=== PATIENT | male | born 1995 | race Caucasian/White ===

== ENCOUNTER 2019-02-17 22:06 | Emergency (ER) | payer OTHER ==
[2019-02-17] MEDS ORDERED: SODIUM CHLORIDE 1,000 ML IV ONE ×3 (22:20→23:00)
[2019-02-17] MEDS ORDERED: ONDANSETRON 4 MG/2 ML VIAL IVPB ONE (22:20)
--- NOTE | 2019-02-17 22:25 | PDOC ---
History of Present Illness - General Chief Complaint: Nausea/Vomiting Stated Complaint: VOMITING Time Seen by Provider: 02/17/19 22:19 History Source: Patient Exam Limitations: No Limitations - History of Present Illness Initial Comments: 02/17/19 22:26 This is a 23-year-old male comes in with approximately 3 hours of nausea vomiting and some diarrhea. Patient said he vomited about 6 times in the last 4 hours. Patient otherwise is healthy and has no medical problems. Patient became concerned because after vomiting he developed some discomfort radiating up into his chest area and called his mom who is a PA who recommended he come to the ED as she is in [place] on business. Allergies: as per nursing notes Past Medical History: none Social history: Lives with family. No smoking. No alcohol. No illicit drugs. Surgical history: None General: No fevers or chills, no weakness, no weight loss HEENT: No change in vision. No sore throat,. No ear pain CardioVascular: no chest discomfort. No shortness of breath Respiratory:No cough, or wheezing. Gastrointestinal: + nausea, + vomiting, + diarrhea or constipation, No rectal bleeding Genitourinary: No dysuria, hematuria, or frequency Musculoskeletal: No joint or muscle pain or swelling Neurologic: No headache, vertigo, dizziness or loss of consciousness Psychiatric: nor depression Skin: No rashes or easy bruising Endocrine: no increased thirst or abnormal weight change Allergic: no skin or latex allergy All other systems reviewed and normal Exam: General: Well-nourished well-developed individual, no acute distress HEENT: Throat: Normal, tonsils normal, no erythema or exudate, mucus membranes are dry Neck: Supple, no meningeal signs, no lymphadenopathy Eyes::Pupils equal reactive and round, extraocular motion intact Chest: Nontender to palpation Cardiac: S1-S2 normal, regular rate and rhythm, no murmurs rubs or gallops Respiratory: Lungs clear to auscultation bilateral Abdomen: Soft, nondistended, normal bowel sounds, there is no tenderness on palpation diffusely Extremities: Warm, dry, no cyanosis, clubbing, or edema Skin: No rashes Neuro: Alert and oriented x3, CN II - XII intact, nonfocal exam with normal strength, normal sensation, normal reflexes, normal gait, Psych: Normal mood and affect 02/18/19 00:02 Reevaluation post 3 L of fluid. Patient feels much better he does does have some chest discomfort that is mild in nature. They can EKG was done which shows normal sinus rhythm rate of [address]-T wave changes normal EKG His mom was called in [place] and discussed with her the results of his workup. Prescription was sent to patient's pharmacy for Zofran Patient discharged home Past History - Past Medical History Allergies/Adverse Reactions: Allergies Allergy/AdvReac Type Severity Reaction Status Date / Time No Known Allergies Allergy Unverified 02/17/19 22:58 Home Medications: Ambulatory Orders Ondansetron [Zofran *Odt*] 4 mg SL QID PRN #12 od.tablet 02/17/19 ED Treatment Course - LABORATORY CBC & Chemistry Diagram: 02/17/19 22:29 02/17/19 22:29 *DC/Admit/Observation/Transfer Diagnosis at time of Disposition: Nausea & vomiting Qualifiers: Vomiting type: unspecified Vomiting Intractability: non-intractable Qualified Code(s): R11.2 - Nausea with vomiting, unspecified - Discharge Dispostion Disposition: HOME Condition at time of disposition: Good Decision to Admit order: No - Prescriptions Prescriptions: Ondansetron [Zofran *Odt*] 4 mg SL QID PRN #12 od.tablet PRN Reason: Nausea - Referrals - Patient Instructions Additional Instructions: If you have any further nausea or vomiting I sent a prescription to your pharmacy for Zofran get it filled and U can take Zofran 1 tablet as often as every 4 hours if needed. Let the Zofran dissolve under your tongue do not swallow it. Clear liquids only for the next 6 hours.. After that if you have had no further vomiting you may have bananas, rice, applesauce, or toast. If no further vomiting for another 8 hours you may have regular food. If you vomit again then nothing to eat or drink for 2 hours. then start back with the clear liquids. Return to the emergency department immediately with ANY new, persistent or worsening symptoms. You MUST call and follow up with your doctor tomorrow if not better. Please make sure your doctor reviews the results of your emergency evaluation. - Post Discharge Activity
[2019-02-17] MEDS ORDERED: FAMOTIDINE 20 MG/50 ML IVPB 20 MG/50 ML MG IVPB ONE ×2 (22:26→22:59)
[2019-02-17 22:32] VITALS: BP 125/77; PULSE 96; TEMP 98.6; BMI 27.3
[2019-02-17 22:58] LABS: HEMATOCRIT 46.4 % (35.4-49); HEMOGLOBIN 15.9 GM/dl (11.7-16.9); MCH 31.5 pg (25.7-33.7); MCHC 34.3 g/dl (32.0-35.9); MEAN CELL VOLUME 91.8 fl (80-96); MEAN PLT VOLUME 9.3 fl (7.5-11.1); PLATELET COUNT 229 K/MM3 (134-434); RBC 5.05 M/mm3 (4.00-5.60); RDW 12.2 % (11.9-15.9)
[2019-02-17] MEDS ORDERED: ONDANSETRON 4 MG/2 ML VIAL ONE (23:00)
[2019-02-17 23:05] LABS: ALK PHOS 67 U/L (45-117); ANION GAP 7 MMOL/L (8-16); BILIRUBIN,TOTAL 0.8 mg/dl (0.2-1); BLOOD UREA NITROGEN 17 mg/dl (7-18); CHLORIDE 104 mmol/L (98-107); CO2 27 mmol/L (21-32); GLUCOSE,RANDOM 141 mg/dl (74-106); POTASSIUM 3.6 mmol/L (3.5-5.1); SGOT/AST 29 U/L (15-37); SGPT/ALT 22 U/L (13-61); SODIUM 138 mmol/L (136-145); TOT PROT 7.7 g/dl (6.4-8.2)
[2019-02-17 23:16] LABS: PLATELET ESTIMATE ADEQUATE
[2019-02-18 00:07] LABS: LIPASE 78 U/L (73-393)
[2019-02-18] MEDS ORDERED: ACETAMINOPHEN 1000 MG/100 ML VIAL (NON FORMULARY) IVPB ONE (00:11)
[2019-02-18] MEDS ORDERED: ACETAMINOPHEN INJECTION 100 ML IVPB ONE (00:12)
--- NOTE | 2019-02-18 11:49 | EKG ---
Test Reason : Blood Pressure : / mmHG Vent. Rate : 090 BPM Atrial Rate : 090 BPM P-R Int : 154 ms QRS Dur : 096 ms QT Int : 376 ms P-R-T Axes : 060 049 038 degrees QTc Int : 459 ms NORMAL SINUS RHYTHM NORMAL ECG NO PREVIOUS ECGS AVAILABLE Confirmed by FORREST VALERIO, TWAN ([id number]) on 02/18/2019 11:49:32 AM Referred By: MD MONTOYA Confirmed By:TWAN CLAYTON MD
== END 2019-02-18 00:58 | disposition home or self-care (01) ==
LOC: FER 22:06
PROC: 3E033GC Introduction of Other Therapeutic Substance into Peripheral Vein, Percutaneous Approach (ICD-10-PCS; principal; 2019-02-17)
PROC: 3E033NZ Introduction of Analgesics, Hypnotics, Sedatives into Peripheral Vein, Percutaneous Approach (ICD-10-PCS; 2019-02-17)
PROC: 3E0337Z Introduction of Electrolytic and Water Balance Substance into Peripheral Vein, Percutaneous Approach (ICD-10-PCS; 2019-02-17)
DX: R11.2 Nausea with vomiting, unspecified (principal)
CPT/HCPCS: 36415; 80053; 82550; 82553; 83690; 84484; 85025; 93005; 99283-25; J0131; J7030

== ENCOUNTER 2021-07-14 16:45 | Emergency (ER) | payer OTHER ==
[2021-07-14 16:50] VITALS: BP 131/87; PULSE 78; TEMP 98.4; BMI 25.1
== END 2021-07-14 17:35 | disposition home or self-care (01) ==
LOC: FER 16:45
DX: S93.492A Sprain of other ligament of left ankle, initial encounter (principal); X50.0XXA Overexertion from strenuous movement or load, initial encounter
CPT/HCPCS: 73610-TC-LT-FY; 99283-25

== ENCOUNTER 2021-10-11 02:49 | Emergency (ER) | payer OTHER ==
[2021-10-11 02:56] VITALS: BP 133/73; BMI 25.8
[2021-10-11] MEDS ORDERED: ONDANSETRON *ODT* 4 MG TABLET SL ONE (05:59)
[2021-10-11] MEDS ORDERED: ACETAMINOPHEN 500 MG TABLET (FP) PO ONE (05:59)
[2021-10-11] MEDS ORDERED: ACETAMINOPHEN 500 MG TABLET (FP) ONE (06:03)
[2021-10-11] MEDS ORDERED: ONDANSETRON *ODT* 4 MG TABLET ONE (06:03)
== END 2021-10-11 08:01 | disposition home or self-care (01) ==
LOC: FER 02:49
DX: F10.929 Alcohol use, unspecified with intoxication, unspecified (principal)
CPT/HCPCS: 99283-25; Q0162

== ENCOUNTER 2021-10-19 13:10 | Emergency (ER) | payer OTHER ==
[2021-10-19 13:26] VITALS: BP 135/91; PULSE 84; TEMP 97.9; BMI 25.8
== END 2021-10-19 15:00 | disposition home or self-care (01) ==
LOC: FER 13:10
DX: H66.92 Otitis media, unspecified, left ear (principal); H61.23 Impacted cerumen, bilateral; H93.13 Tinnitus, bilateral
CPT/HCPCS: 99283-25

== ENCOUNTER 2022-09-20 01:42 | Emergency (ER) | payer OTHER ==
[2022-09-20 01:49] VITALS: BP 131/87; PULSE 74; RESP 16; TEMP 97.6; BMI 25.9
== END 2022-09-20 02:08 | disposition home or self-care (01) ==
LOC: FER 01:42
DX: H61.23 Impacted cerumen, bilateral (principal)
CPT/HCPCS: 99281-25

== ENCOUNTER 2024-08-28 01:52 | Emergency (ER) | payer OTHER ==
[2024-08-28 02:00] VITALS: BP 130/90; PULSE 82; RESP 16; TEMP 98.3; BMI 26.9
== END 2024-08-28 02:21 | disposition home or self-care (01) ==
LOC: FER 01:52
DX: S00.03XA Contusion of scalp, initial encounter (principal); W22.8XXA Striking against or struck by other objects, initial encounter
CPT/HCPCS: 99283-25